=== PATIENT | female | born 1985 | race Caucasian/White ===

== ENCOUNTER 2020-01-26 00:12 | Emergency (ER) | payer OTHER ==
[2020-01-26 00:45] VITALS: BMI 36.2
--- NOTE | 2020-01-26 00:51 | PDOC ---
History of Present Illness - General Chief Complaint: Pain, Acute Stated Complaint: ABD PAIN, 10 WKS - History of Present Illness Initial Comments: The pt is a 35F at 12wks by US who presents for evaluation of 8 days of constipation and abdominal pain. The pt reports that her last BM was 8 days ago but has continued to have flatus. She reports associated NBNB emesis for 2-3 days. She reports rectal pain that is worse with abdominal palpation and with bearing down. She reports small amount of blood on the tissue when wiping after attempting a BM. She denies vaginal bleeding/discharge. She has tried water and orange juice for her symptoms. Denies fevers/chills, KRUEGER, vision changes, chest pain, trouble breathing, dysuria, hematuria, vaginal bleeding/discharge. 01/26/20 03:35 Past History - Medical History Allergies/Adverse Reactions: Allergies Allergy/AdvReac Type Severity Reaction Status Date / Time No Known Allergies Allergy Verified 01/26/20 00:39 - Reproductive History Is Patient Now?: Yes - Psycho-Social/Smoking History Smoking History: Never smoked Have you smoked in the past 12 months: No Information on smoking cessation initiated: No - Substance Abuse Hx (Audit-C & DAST Scrn) How often the patient has a drink containing alcohol: Never Score: In Men: 4 or > Positive; In Women: 3 or > Positive: 0 Screen Result (Pos requires Nsg. Audit-10AR): Negative In the last yr the pt used illegal drug/Rx for NonMed reason: No Score: Yes response is considered Positive: 0 Screen Result (Positive result requires Nsg. DAST-10): Negative Review of Systems - Review of Systems Able to Perform ROS?: Yes Comments:: GENERAL/CONSTITUTIONAL: No fever or chills. No weakness HEAD, EYES, EARS, NOSE AND THROAT: No change in vision. No change in hearing. No sore throat CARDIOVASCULAR: No chest pain or shortness of breath RESPIRATORY: Denies cough, hemoptysis GASTROINTESTINAL: per HPI GENITOURINARY: No dysuria, frequency, or change in urination MUSCULOSKELETAL: No joint or muscle swelling or pain. No neck or back pain SKIN: No rash NEUROLOGIC: No headache, vertigo, loss of consciousness, or change in strength/sensation ENDOCRINE: No increased thirst. No abnormal weight change HEMATOLOGIC/LYMPHATIC: No anemia, easy bleeding, or history of blood clots ALLERGIC/IMMUNOLOGIC: No hives or skin allergy 01/26/20 00:50 Is the patient limited Latvian proficient: No *Physical Exam - Vital Signs Last Vital Signs Temp Pulse Resp BP Pulse Ox 98.4 F 110 H 20 127/83 98 01/26/20 00:39 01/26/20 00:39 01/26/20 00:39 01/26/20 00:39 01/26/20 00:39 - Physical Exam GENERAL: Awake, alert, and oriented to person/place/time, in no acute distress HEAD: No signs of trauma, normocephalic, atraumatic EYES: PERRLA, EOMI, sclera anicteric, conjunctiva clear ENT: Hearing grossly normal, nares patent, oropharynx clear without exudates. Moist mucosa LUNGS: No distress, speaks in full sentences, clear to auscultation bilaterally HEART: Regular rate and rhythm, normal S1 and S2, no murmurs appreciated, peripheral pulses normal and equal bilaterally ABDOMEN: Soft, palpation induces rectal pain with abdominal pain, normoactive bowel sounds. No guarding, no rebound. EXTREMITIES: Normal inspection, Normal range of motion, no edema. No clubbing or cyanosis NEUROLOGICAL: Cranial nerves II through XII grossly intact. Normal speech, normal gait, no focal sensorimotor deficits SKIN: Warm, Dry 01/26/20 00:51 ED Treatment Course - LABORATORY CBC & Chemistry Diagram: 01/26/20 02:11 01/26/20 02:11 - RADIOLOGY Radiology Studies Ordered: Category Date Time Status ABDOMEN US -LIMITED [US] Stat Ultrasound 01/26/20 00:41 Ordered TRANSVAGINAL US PREG [US] Stat Ultrasound 01/26/20 00:41 Ordered Medical Decision Making - Medical Decision Making The pt is a 35F at 12wks by US who presents for evaluation of 8 days of constipation with rectal pain without obstipation ED Course Labs sent and overall unremarkable TVUS w/ single live IUP at apprx 12 weeks RUQ US with fatty liver Pt reports feeling improved s/p IVF and tylenol Pt offered and enema and would like to try that here ECG w/ NSR; HR 69; QTc 422; no axis deviation; no TETO Likely D/C w/ OB f/u Instructions for fiber and prune juice will be provided 01/26/20 03:40 Pt feels improved at this time Pt continuing to pass gas Plan for D/C w/ OB f/u Discharge instructions and return precautions given Pt in agreement and verbalized understanding Dispo: home 01/26/20 04:12 Discharge - Discharge Information Problems reviewed: Yes Clinical Impression/Diagnosis: Constipation Qualifiers: Constipation type: unspecified constipation type Qualified Code(s): K59.00 - Constipation, unspecified Qualifiers: Weeks of gestation: 12 weeks Qualified Code(s): Z3A.12 - 12 weeks gestation of Condition: Stable - Admission No - Follow up/Referral Referrals: Lonnie Chang MD [Primary Care Provider] - Mary Meier MD [Staff Physician] - - Patient Discharge Instructions Patient Printed Discharge Instructions: DI for Constipation Additional Instructions: You were seen in the Emergency Department for evaluation of constipation. Your labs and imaging were overall unremarkable. You should take prune juice and fiber daily to help with your constipation. For fiber, you may use [facility] Follow up with your OBGYN within the week. Review the handout provided at discharge. Return to the Emergency Department if you develop fevers, further vomiting, chest pain, trouble breathing, worsening pain, change in sensation, worsening symptoms, or any new/concerning symptoms. Lo vieron en el Departamento de Emergencias para richa evaluacin de estreimiento. Alisha laboratorios e imgenes no fueron notables en general. Debe hayden jugo de ciruela y fibra a diario para ayudar con velez estreimiento. Para la fibra, puede usar [facility] Jada un seguimiento con velez obstetra dentro de la semana. Revise el folleto provisto al momento del anshul. Regrese al Departamento de Emergencias si presenta fiebre, ms vmitos, dolor en el pecho, dificultad para respirar, empeoramiento del dolor, cambio en la sensacin, empeoramiento de los sntomas o cualquier sntoma nuevo o preocupante. Print Language: BERMUDIAN - Post Discharge Activity Work/Back to School Note: Back to Work
[2020-01-26] MEDS ORDERED: ACETAMINOPHEN 1000 MG/100 ML VIAL (NON FORMULARY) IVPB ONE (01:42)
[2020-01-26] MEDS ORDERED: LACTATED RINGERS SOLUTION 1000 ML INFUS.BAG IV ONE (01:42)
[2020-01-26] MEDS ORDERED: MAGNESIUM CITRATE 300 ML BOTTLE PO ONE (01:43)
[2020-01-26] MEDS ORDERED: ACETAMINOPHEN INJECTION 100 ML IVPB ONE (01:54)
[2020-01-26] MEDS ORDERED: MAGNESIUM CITRATE 300 ML BOTTLE ONE (01:54)
[2020-01-26] MEDS ORDERED: POLYETHYLENE GLYCOL 3350 119 GM BTL PO ONE (02:10)
[2020-01-26 02:30] LABS: BASO % 0.5 % (0-2.0); EOS % 0.4 % (0-4.5); HEMATOCRIT 39.3 % (32.4-45.2); HEMOGLOBIN 13.5 GM/dL (10.7-15.3); LYMPH % 12.8 % (8-40); MCHC 34.3 g/dl (32.0-36.0); MEAN CELL VOLUME 87.3 fl (80-96); MONO % 2.7 % (3.8-10.2); NEUT % 83.6 % (42.8-82.8); PLATELET COUNT 270 K/MM3 (134-434); RDW 13.2 % (11.6-15.6)
[2020-01-26 03:02] LABS: URINE APPEARANCE CLEAR; URINE BILIRUBIN NEGATIVE (NEGATIVE); URINE COLOR YELLOW; URINE GLUCOSE (UA) NEGATIVE (NEGATIVE); URINE KETONE 1+ (NEGATIVE); URINE LEUK ESTERASE NEGATIVE (NEGATIVE); URINE NITRITE NEGATIVE (NEGATIVE); URINE PROTEIN NEGATIVE (NEGATIVE); URINE UROBILINOGEN 0.2 mg/dL (0.2-1.0)
[2020-01-26 03:03] LABS: ALBUMIN 3.2 g/dl (3.4-5.0); ALK PHOS 95 U/L (45-117); ANION GAP 9 MMOL/L (8-16); BILIRUBIN,TOTAL 0.2 mg/dL (0.2-1); BLOOD UREA NITROGEN 5.5 mg/dL (7-18); CALCIUM 8.7 mg/dL (8.5-10.1); CHLORIDE 107 mmol/L (98-107); CO2 22 mmol/L (21-32); CREATININE 0.6 mg/dL (0.55-1.3); GLUCOSE,RANDOM 117 mg/dL (74-106); LIPASE 72 U/L (73-393); POTASSIUM 3.9 mmol/L (3.5-5.1); SGOT/AST 23 U/L (15-37); SGPT/ALT 33 U/L (13-61); SODIUM 138 mmol/L (136-145); TOT PROT 7.2 g/dl (6.4-8.2)
[2020-01-26] MEDS ORDERED: SODIUM PHOSPHATE/NA BIPHOS 133 ML ENEMA PR ONE (03:09)
--- NOTE | 2020-01-26 03:24 | PDOC ---
Attending Attestation - Resident Resident Name: Dimitri Winkler - ED Attending Attestation I have performed the following: I have examined & evaluated the patient, The case was reviewed & discussed with the resident, I agree w/resident's findings & plan - HPI HPI: 01/26/20 03:22 see resident hpi - Physicial Exam PE: 01/26/20 03:22 see resident exam - Medical Decision Making 01/26/20 03:22 35-year-old female currently 12 weeks gestational age complaining of rectal pain and constipation Ultrasound of the right upper quadrant showed no significant acute abnormality Ultrasound of the pelvis shows a live approximate 12-week IUP Patient does have white blood cell elevation though has a completely nontender abdomen on reevaluation and is afebrile She does have local rectal discomfort and does not tolerate full digital rectal exam but has agreed to an enema nightly We will plan for DC home with stool softeners and [employer] follow-up Discharge - Discharge Information Problems reviewed: Yes Clinical Impression/Diagnosis: Constipation, - Follow up/Referral Referrals: Lonnie Chang MD [Primary Care Provider] - - Patient Discharge Instructions - Post Discharge Activity
[2020-01-26 05:02] VITALS: BP 104/65; PULSE 84; TEMP 98.5
--- NOTE | 2020-01-26 12:35 | EKG ---
Test Reason : Blood Pressure : / mmHG Vent. Rate : 069 BPM Atrial Rate : 069 BPM P-R Int : 154 ms QRS Dur : 068 ms QT Int : 394 ms P-R-T Axes : 025 023 027 degrees QTc Int : 422 ms NORMAL SINUS RHYTHM LOW VOLTAGE QRS BORDERLINE ECG NO PREVIOUS ECGS AVAILABLE Confirmed by SHERI SAHNI MD ([id number]) on 01/26/2020 12:34:51 PM Referred By: Confirmed By:SHERI SAHNI MD
== END 2020-01-26 05:04 | disposition home or self-care (01) ==
LOC: JER 00:12
PROC: 3E0333Z Introduction of Anti-inflammatory into Peripheral Vein, Percutaneous Approach (ICD-10-PCS; principal; 2020-01-26)
DX: K59.00 Constipation, unspecified (principal); Z3A.12 12 weeks gestation of pregnancy
CPT/HCPCS: 36415; 76705-TC; 76801-TC; 80053; 81003; 83690; 84484; 84702; 85025; 87086; 93005; 93010; 99285-25; J0131

== ENCOUNTER 2020-08-02 11:55 | Inpatient (IN) | payer OTHER ==
[2020-08-02] MEDS: ELECTROLYTE-148 SOLN 1,000 ML IV SCH (13:15)
[2020-08-02 13:20] VITALS: BMI 41.7
[2020-08-02] MEDS ORDERED: FENTANYL/BUPIVACAINE/NS/PF - PCEA - 50 ML DISP.SYRIN EP ONE (13:36)
[2020-08-02] MEDS ORDERED: PCA PUMP NR ONE (13:36)
[2020-08-02] MEDS: FENTANYL/BUPIVACAINE/NS/PF - PCEA - 50 ML DISP.SYRIN EP SCH (14:00)
[2020-08-02 14:08] LABS: INR 0.96 (0.83-1.09); PROTHROMBIN TIME (PATIENT) 11.6 SEC (9.7-13.0)
[2020-08-02 14:14] LABS: BASO % 0.3 % (0-2.0); EOS % 0.1 % (0-4.5); HEMATOCRIT 38.7 % (32.4-45.2); LYMPH % 6.8 % (8-40); MCH 29.9 pg (25.7-33.7); MCHC 33.5 g/dl (32.0-36.0); MEAN CELL VOLUME 89.2 fl (80-96); MEAN PLT VOLUME 12.1 fl (7.5-11.1); MONO % 2.5 % (3.8-10.2); NEUT % 90.3 % (42.8-82.8); PLATELET COUNT 183 K/MM3 (134-434); RBC 4.34 M/mm3 (3.60-5.2); RDW 14.2 % (11.6-15.6); WHITE BLOOD COUNT 13.7 K/mm3 (4.0-10.0)
[2020-08-02] MEDS ORDERED: NALOXONE HCL 0.4 MG/ML VIAL IVPUSH PRN (14:20)
[2020-08-02 14:30] LABS: POTASSIUM 4.1 mmol/L (3.5-5.1)
[2020-08-02 14:32] LABS: BLOOD UREA NITROGEN 10.9 mg/dL (7-18)
[2020-08-02 14:35] LABS: CREATININE 0.7 mg/dL (0.55-1.3)
[2020-08-02 15:01] LABS: PH,URINE 5.5 (5.0-8.0); URINE APPEARANCE CLEAR; URINE BILIRUBIN NEGATIVE (NEGATIVE); URINE COLOR YELLOW; URINE GLUCOSE (UA) NEGATIVE (NEGATIVE); URINE KETONE 15 mg/dl (NEGATIVE); URINE LEUK ESTERASE NEGATIVE (NEGATIVE); URINE NITRITE NEGATIVE (NEGATIVE); URINE PROTEIN TRACE (NEGATIVE); URINE UROBILINOGEN 0.2 mg/dL (0.2-1.0)
[2020-08-02 15:02] LABS: EPI CELLS 25.5 /uL (0-25.1); HYALINE CASTS 5.13 /uL (0-3.1); URINE BACTERIA 76.4 /uL (0-1359); URINE RBC 7.7 /uL (0-23.9); URINE WBC 10.6 /uL (0-25.8)
[2020-08-02] MEDS ORDERED: LIDOCAINE HCL 1% PRESERVATIVE FREE - 30ML VIAL ONE (17:28)
[2020-08-02] MEDS ORDERED: OXYTOCIN 20 UNITS in 0.9% NS 20 UNIT/1,000 ML INFUS.BAG IV ONE (17:28)
[2020-08-02] MEDS ORDERED: METHYLERGONOVINE MALEATE 0.2 MG/1 ML AMP IM PRN (18:33)
[2020-08-02] MEDS ORDERED: BENZOCAINE 28 GM HEMORRHOIDAL OINTMENT TP PRN (18:33)
[2020-08-02] MEDS ORDERED: BISACODYL 10 MG SUPP.RECT RC PRN (18:33)
[2020-08-02] MEDS ORDERED: WITCH HAZEL 50% (TUCKS) 40 PAD/JAR PAD TP PRN (18:33)
[2020-08-02] MEDS ORDERED: OXYTOCIN 20 UNITS in 0.9% NS 20 UNIT/1,000 ML INFUS.BAG IV SCH (18:45)
[2020-08-02 19:34] LABS: CORD BASE EXCESS -5.2 mmol/L (0-2); CORD HCO3 22.3 mmHg (20-29); CORD PCO2 50.4 mmHg (30-78); CORD pH 7.263 (7.14-7.44)
[2020-08-02 19:37] LABS: CORD BASE EXCESS -6.2 mmol/L (0-2); CORD HCO3 22.6 mmHg (20-29); CORD PCO2 57.1 mmHg (30-78); CORD pH 7.215 (7.14-7.44)
[2020-08-02] MEDS: ACETAMINOPHEN 325 MG TABLET (FP) PO PRN (22:00)
[2020-08-02] MEDS: IBUPROFEN 600 MG TABLET (FP) PO PRN (22:00)
[2020-08-03] MEDS: BENZOCAINE 20% 57 GM BOTTLE TP PRN (00:11)
[2020-08-03] MEDS: ACETAMINOPHEN 325 MG TABLET (FP) PO PRN ×3 (06:14→18:10)
[2020-08-03] MEDS: IBUPROFEN 600 MG TABLET (FP) PO PRN ×3 (06:14→18:10)
[2020-08-03 08:50] LABS: BASO % 0.3 % (0-2.0); EOS % 0.6 % (0-4.5); HEMATOCRIT 32.1 % (32.4-45.2); HEMOGLOBIN 10.9 GM/dL (10.7-15.3); LYMPH % 13.2 % (8-40); MCH 30.2 pg (25.7-33.7); MCHC 33.9 g/dl (32.0-36.0); MEAN CELL VOLUME 89.3 fl (80-96); MEAN PLT VOLUME 11.1 fl (7.5-11.1); NEUT % 81.9 % (42.8-82.8); PLATELET COUNT 162 K/MM3 (134-434); RBC 3.59 M/mm3 (3.60-5.2); RDW 14.1 % (11.6-15.6); WHITE BLOOD COUNT 12.9 K/mm3 (4.0-10.0)
[2020-08-03] MEDS: FAMOTIDINE 20 MG TABLET PO SCH (12:00)
[2020-08-03] MEDS: PRENATAL VITAMINS W/ FOLIC ACID TABLET (FP) PO SCH (12:00)
[2020-08-03] MEDS: FERROUS SO4 325 MG TABLET (FP) PO SCH ×2 (12:13→18:18)
[2020-08-03] MEDS: ELECTROLYTE-148 SOLN 1,000 ML IV SCH (13:39)
[2020-08-03] MEDS: FENTANYL/BUPIVACAINE/NS/PF - PCEA - 50 ML DISP.SYRIN EP SCH (17:04)
[2020-08-03] MEDS ORDERED: SENNOSIDES/DOCUSATE COMBO (SENNA PLUS) TABLET (UD) PO PRN (22:00)
[2020-08-04] MEDS: FERROUS SO4 325 MG TABLET (FP) PO SCH (08:51)
[2020-08-04] MEDS: IBUPROFEN 600 MG TABLET (FP) PO PRN (09:30)
[2020-08-04] MEDS: FAMOTIDINE 20 MG TABLET PO SCH (09:30)
[2020-08-04] MEDS: ACETAMINOPHEN 325 MG TABLET (FP) PO PRN (09:30)
[2020-08-04] MEDS: PRENATAL VITAMINS W/ FOLIC ACID TABLET (FP) PO SCH (09:30)
[2020-08-04] MEDS: BENZOCAINE 20% 57 GM BOTTLE TP PRN (09:31)
[2020-08-04 10:40] VITALS: TEMP 98.4
[2020-08-04 10:47] VITALS: BP 138/82; PULSE 68
== END 2020-08-04 15:15 | disposition home or self-care (01) | DRG 560 ==
LOC: JDEL 11:55 → JLDR 12:25 → J3W 19:40
PROVIDERS: ADMIT Obstetrics & Gynecology; ATTEND Obstetrics & Gynecology
PROC: 10E0XZZ Delivery of Products of Conception, External Approach (ICD-10-PCS; principal; 2020-08-02)
PROC: 0W8NXZZ Division of Female Perineum, External Approach (ICD-10-PCS; 2020-08-02)
DX: O34.219 Maternal care for unspecified type scar from previous cesarean delivery (principal); O24.420 Gestational diabetes mellitus in childbirth, diet controlled; O10.92 Unspecified pre-existing hypertension complicating childbirth; O99.214 Obesity complicating childbirth; E66.01 Morbid (severe) obesity due to excess calories; O69.81X0 Labor and delivery complicated by cord around neck, without compression, not applicable or unspecified; Z3A.38 38 weeks gestation of pregnancy; Z37.0 Single live birth
CPT/HCPCS: 36415; 36600; 59025; 59409; 80048; 81003; 82803; 82977; 83010; 84450; 84460; 84550; 85025; 85610; 85730; 86780; 86850; 86900; 86901